=== PATIENT | male | born 1940 | race Caucasian/White ===

== ENCOUNTER 2018-07-14 08:50 | Day surgery (SDC) | payer MEDICARE, OTHER ==
[~2018-07-14] VITALS: Ht 175.3 cm; Wt 76.3 kg
[~2018-07-14 08:50] MED LIST: ASCO500; ASCO500 PO; ASPI81CH; BUDE6HFA INH; CHOL10002; Cialis10 MG PO; ECHINACEA350 MG; ELIQUIS5 MG PO; Echinacea400 MG PO; Fish Oil 10001000 MG; GNP GLUCOSAMIN1 EAC2 PO; Garlic Oil1000 MG PO; Garlic1 EAC1; Glucosamine-MS1 EAC1; Hair, Skin & N1 EACH; JOINT HEALTH T1 EACH PO; MULTI VITAMIN1 EACH PO; PRESERVISION A1 EACH PO; ROSU10TA; ROSU10TA PO; TUMS DUAL ACTI1 EACH PO; Toprol Xl25 MG PO; VITAMIN D31000 UNIT PO
--- NOTE | 2018-07-14 10:03 | NUR ---
07/14/18 1003 Michaela Meyers SITE CHECK 0955 DR LU AT BEDSIDE TO PERFORM NERVE BLOCK IN PREOP. PT MONITERED VSS THROUGHOUT INJECTION. PT TRANSFERRED TO OR VIA RNEY.
--- NOTE | 2018-07-14 12:30 | NUR ---
07/14/18 1230 Higinio Deshpande S PATIENT SITTING UP IN RECLINER CHAIR VISITING WITH . DENIES AND PAIN OR NAUSEA AT THIS TIME. VSS PATIENT DRINKING JUICE AND EATING COOKIES
== END 2018-07-14 13:45 | disposition home or self-care (01) ==
LOC: ORSCSDS 08:50
PROVIDERS: Orthopaedic Surgery
PROC: 0RNK4ZZ Release Left Shoulder Joint, Percutaneous Endoscopic Approach (ICD-10-PCS; principal; 2018-07-14 10:00)
PROC: 0LM24ZZ Reattachment of Left Shoulder Tendon, Percutaneous Endoscopic Approach (ICD-10-PCS; principal; 2018-07-14 10:00)
DX: M75.122 Complete rotator cuff tear or rupture of left shoulder, not specified as traumatic (principal); M75.42 Impingement syndrome of left shoulder; M75.32 Calcific tendinitis of left shoulder; M19.90 Unspecified osteoarthritis, unspecified site; E78.00 Pure hypercholesterolemia, unspecified; I10 Essential (primary) hypertension; G47.33 Obstructive sleep apnea (adult) (pediatric); I48.91 Unspecified atrial fibrillation; J45.909 Unspecified asthma, uncomplicated; Z79.01 Long term (current) use of anticoagulants; Z88.8 Allergy status to other drugs, medicaments and biological substances; Z87.891 Personal history of nicotine dependence; Z79.899 Other long term (current) drug therapy
CPT/HCPCS: C1713; J0171; J0690; J1100; J1885; J2250; J2370; J2405; J2795; J3010; J7120

== ENCOUNTER → 2018-08-30 | Outpatient (CLI) | payer MEDICARE, OTHER | END | disposition home or self-care (01) | LOC: LAB 16:35 → LAB SHORT 16:35 | DX: B02.9 Zoster without complications (principal) | CPT/HCPCS: 87798 ==

== ENCOUNTER → 2018-12-29 | Outpatient (CLI) | payer MEDICARE, OTHER ==
[2018-12-29 13:08] LABS: Source, Urine Clean Catch
[2018-12-29 15:31] LABS: Bilirubin, Urine Neg (Neg); Blood, Urine 1+ (Neg); Glucose Qualitative, Urine Neg (Neg); Ketones, Urine Neg (Neg); Leukocyte Esterase, Urine Neg (Neg); Nitrite, Urine Neg (Neg); Protein, Urine Neg (Neg); Urobilinogen, Urine NORM (Normal)
[2018-12-29 15:43] LABS: Appearance, Urine Clear (Clear); Bacteria Few /hpf; Color, Urine Yellow (P-Yellow); Squamous Epithelial Cells Not Seen /hpf (Few); White Blood Cells, Urine 0-2 /hpf (0-5)
== END | disposition home or self-care (01) ==
LOC: LAB 13:06 → LAB SHORT 13:06
PROVIDERS: Internal Medicine
DX: N40.1 Benign prostatic hyperplasia with lower urinary tract symptoms (principal); R10.9 Unspecified abdominal pain
CPT/HCPCS: 81001

== ENCOUNTER 2019-06-05 06:01 | Emergency (ER) | payer MEDICARE ==
[~2019-06-05] VITALS: Ht 175.3 cm; Wt 74.8 kg
[2019-06-05 07:24] LABS: Influenza A Negative (NEGATIVE); Influenza B Negative (NEGATIVE)
[2019-06-05] MEDS ORDERED: BUDE6HFA INH (07:42)
[2019-06-05] MEDS ORDERED: METPRE4DP PO (07:42)
[2019-06-05] MEDS ORDERED: ALBU2.5V5 NEB (07:42)
[2019-06-05] MEDS ORDERED: Ventolin/Prove6.7 GM INH (07:42)
== END 2019-06-05 07:52 | disposition home or self-care (01) ==
LOC: ER 06:01
PROVIDERS: Emergency Medicine
DX: J44.0 Chronic obstructive pulmonary disease with (acute) lower respiratory infection (principal); J20.9 Acute bronchitis, unspecified; J44.1 Chronic obstructive pulmonary disease with (acute) exacerbation; J45.901 Unspecified asthma with (acute) exacerbation; Z87.891 Personal history of nicotine dependence; Z79.899 Other long term (current) drug therapy; Z79.01 Long term (current) use of anticoagulants
CPT/HCPCS: 71046; 87804; 94640; 99283; J7512

== ENCOUNTER → 2020-08-27 | Outpatient (CLI) | payer MEDICARE, OTHER ==
[~2020-08-27] MED LIST changes: +ALBU2.5V5 NEB; +METFORMIN HCL500 M2 PO; +METPRE4DP PO; +Prednisone20 MG PO; +Ventolin/Prove6.7 GM INH
== END | disposition home or self-care (01) ==
LOC: PLD 07:28 → LAB SHORT 07:28
DX: D49.0 Neoplasm of unspecified behavior of digestive system (principal)
CPT/HCPCS: 88173

== ENCOUNTER 2020-11-07 10:17 | Day surgery (SDC) | payer MEDICARE, OTHER ==
[~2020-11-07] VITALS: Ht 175.3 cm; Wt 73.3 kg
--- NOTE | 2020-11-07 11:08 | NUR ---
11/07/20 1108 HALLE PEREZ ON BILAT LEGS
--- NOTE | 2020-11-07 12:46 | NUR ---
11/07/20 1246 Kandice Moreira EPI 0.25 MG MIXED W/ 0.9% SODIUM CHLORIDE INJECTION, [facility] PER ORDER TO CONSTITUTE EPI 1:200,000 FOR INJECTION AT [facility] BY DR. GONZALEZ. 3.5 ML EPI 1:200,000 INJECTED AT [facility] BY DR. GONZALEZ.
== END 2020-11-07 15:30 | disposition home or self-care (01) ==
LOC: ORSCSDS 10:17
PROVIDERS: Otolaryngology
PROC: 0CBB0ZZ Excision of Right Parotid Duct, Open Approach (ICD-10-PCS; principal; 2020-11-07 11:30)
DX: D11.0 Benign neoplasm of parotid gland (principal); I10 Essential (primary) hypertension; J45.909 Unspecified asthma, uncomplicated; K21.9 Gastro-esophageal reflux disease without esophagitis; E11.9 Type 2 diabetes mellitus without complications; E78.5 Hyperlipidemia, unspecified; Z79.84 Long term (current) use of oral hypoglycemic drugs; Z79.01 Long term (current) use of anticoagulants
CPT/HCPCS: 82947; 88307; J0171; J1100; J2370; J2405; J2704; J3010; J7120

== ENCOUNTER 2023-06-02 06:54 | Day surgery (SDC) | payer MEDICARE, OTHER ==
[~2023-06-02] VITALS: Ht 175.3 cm; Wt 75.8 kg
[~2023-06-02 06:54] MED LIST changes: +OMEP20ER PO
[2023-06-02] MEDS ORDERED: OXYB5 PO (07:14)
--- NOTE | 2023-06-02 07:20 | NUR ---
06/02/23 0720 Trini Bryant AT 0712 [address] [id number]
[2023-06-02 08:18] VITALS: BP 135/79
== END 2023-06-02 08:33 | disposition home or self-care (01) ==
LOC: ORSCSDS 06:54
PROVIDERS: Student in an Organized Health Care Education/Training Program
PROC: 08RJ3JZ Replacement of Right Lens with Synthetic Substitute, Percutaneous Approach (ICD-10-PCS; principal; 2023-06-02 08:00)
DX: E11.36 Type 2 diabetes mellitus with diabetic cataract (principal); I10 Essential (primary) hypertension; I48.91 Unspecified atrial fibrillation; K21.9 Gastro-esophageal reflux disease without esophagitis; H35.3191 Nonexudative age-related macular degeneration, unspecified eye, early dry stage; Z79.84 Long term (current) use of oral hypoglycemic drugs; Z79.01 Long term (current) use of anticoagulants; Z79.899 Other long term (current) drug therapy; H25.13 Age-related nuclear cataract, bilateral
CPT/HCPCS: 82947; J2001; J3010; J7040; V2632

== ENCOUNTER 2025-03-08 13:06 | Emergency (ER) | payer MEDICARE, OTHER ==
[~2025-03-08] VITALS: Ht 175.3 cm; Wt 74.8 kg
[~2025-03-08 13:06] MED LIST changes: +COQ-10100 MG; +Crestor40 MG; +OXYB5 PO
[2025-03-08 13:54] LABS: BASOPHILS ABSOLUTE AUTO 0.07 K/mm3 (0.00-0.23); BASOPHILS PERCENT AUTO 1 % (0-2); EOSINOPHILS ABSOLUTE AUTO 0.43 K/mm3 (0.00-0.68); EOSINOPHILS PERCENT AUTO 3 % (0-6); Hematocrit 43.8 % (37.0-53.0); Hemoglobin 14.7 g/dL (13.5-17.5); IMMATURE GRAN ABSOLUTE AUTO 0.04 K/mm3 (0.00-0.10); IMMATURE GRAN PERCENT AUTO 0 % (0-1); LYMPHOCYTES ABSOLUTE AUTO 2.53 K/mm3 (0.84-5.20); LYMPHOCYTES PERCENT AUTO 19 % (21-46); MONOCYTES ABSOLUTE AUTO 0.88 K/mm3 (0.16-1.47); MONOCYTES PERCENT AUTO 7 % (4-13); Mean Corpuscular HGB Conc 33.6 g/dL (31.5-36.5); Mean Corpuscular Volume 92 fL (80-100); NEUTROPHILS ABSOLUTE AUTO 9.35 K/mm3 (1.96-9.15); NEUTROPHILS PERCENT AUTO 70 % (41-73); NRBC ABSOLUTE 0.00 K/mm3 (0.00-0.02); NRBC Auto 0.0 /100 WBC (0.0-0.2); Platelet Count 239 K/mm3 (150-400); RDW Coefficient Variation 13.7 % (11.7-14.2); RDW Standard Deviation 46.4 fL (35.1-46.3)
[2025-03-08] MEDS ORDERED: NS 1,000 ML IV SCH (14:00)
[2025-03-08] MEDS ORDERED: Metoprolol Tartrate 1 MG/ML 5 ML VIAL IV PRN (14:00)
[2025-03-08 14:08] LABS: Alanine Aminotransfer (ALT/SGP 24.0 U/L (12-78); Albumin, Blood 3.8 g/dL (3.4-5.0); Albumin/Globulin Ratio 1.1 (0.8-1.8); Anion Gap 9.0 mmol/L (3-11); Aspartate Aminotrans (AST/SGOT 21.0 U/L (12-37); Bilirubin, Total 1.1 mg/dL (0.1-1.0); Blood Urea Nitrogen 12.0 mg/dL (8-24); CO2, Blood 25.0 mmol/L (21-32); Calcium, Blood 9.4 mg/dL (8.5-10.1); Chloride, Blood 104.0 mmol/L (98-108); Creatinine, Blood 0.7 mg/dL (0.60-1.20); Globulin, Blood 3.5 g/dL (2.2-4.0); Glucose, Blood 134.0 mg/dL (70-99); Potassium, Blood 4.4 mmol/L (3.5-5.5); Sodium, Blood 134.0 mmol/L (136-145); Total Protein, Blood 7.3 g/dL (6.4-8.2)
[2025-03-08 17:45] VITALS: BP 132/99
== END 2025-03-08 17:50 | disposition home or self-care (01) ==
LOC: ER 13:06
PROVIDERS: Emergency Medicine
DX: I48.91 Unspecified atrial fibrillation (principal); J45.909 Unspecified asthma, uncomplicated; Z87.891 Personal history of nicotine dependence; Z88.8 Allergy status to other drugs, medicaments and biological substances; Z79.84 Long term (current) use of oral hypoglycemic drugs; Z79.01 Long term (current) use of anticoagulants; Z79.51 Long term (current) use of inhaled steroids; Z79.899 Other long term (current) drug therapy
CPT/HCPCS: 71046; 80053; 84484; 85025; 93005; 93010; 96361; 96374; 96376; 99285-25; A9270; J7030